=== PATIENT | female | born 1935 | race Asian ===

== ENCOUNTER 2020-08-31 10:31 | Emergency (ER) | payer MEDICAID, SELFPAY ==
[~2020-08-31] VITALS: Ht 134.6 cm; Wt 46.3 kg
[2020-08-31 10:35] VITALS: Ht 134.6 cm; Wt 46.3 kg
[2020-08-31 14:44] LABS: BASOPHIL % 0.8 % (0.2-1.3); PLATELET COUNT 198 x10^3mcL (179-408)
[2020-08-31 14:46] LABS: CALCIUM 8.9 mg/dL (8.5-10.1); CARBON DIOXIDE 25.5 mmol/L (21-32); CHLORIDE SERUM 103 mmol/L (98-107); CREATININE SERUM 0.8 mg/dL (0.6-1.0); GLUCOSE SERUM 89 mg/dL (74-106); POTASSIUM SERUM 3.4 mmol/L (3.5-5.1); SODIUM SERUM 141 mmol/L (136-145)
[2020-08-31 14:51] LABS: ALKALINE PHOSPHATASE 164 U/L (46-116); ALT/SGPT 23 U/L (14-59); AST/SGOT 34 U/L (15-37); BILIRUBIN TOTAL 1.5 mg/dL (0.20-1.00); TOTAL PROTEIN, SERUM 7.4 g/dL (6.4-8.2)
[2020-08-31 14:53] LABS: ALBUMIN 3.2 g/dL (3.4-5.0)
[2020-08-31 16:40] VITALS: BP 156/103
== END 2020-08-31 16:56 | disposition home or self-care (01) ==
LOC: ED 10:31
PROVIDERS: Emergency Medicine
DX: J44.9 Chronic obstructive pulmonary disease, unspecified (principal); Z20.828 Contact with and (suspected) exposure to other viral communicable diseases
CPT/HCPCS: 83880; U0003